=== PATIENT | female | born 1990 | race Caucasian/White ===

== ENCOUNTER 2021-04-30 08:02 | Outpatient (REF) | payer OTHER, SELFPAY ==
[2021-04-30 10:59] LABS: HCG Quantitative 4276 mIU/mL
== END 2021-04-30 08:03 | disposition home or self-care (01) ==
LOC: HO.LAB 08:02
PROVIDERS: Visit Provider Advanced Practice Midwife
DX: O26.899 Other specified pregnancy related conditions, unspecified trimester (principal); R30.0 Dysuria; Z32.01 Encounter for pregnancy test, result positive
CPT/HCPCS: 36415; 81003; 81025; 84702

== ENCOUNTER 2021-05-02 10:24 | Outpatient (REF) | payer OTHER, SELFPAY ==
[2021-05-02 11:51] LABS: HCG Quantitative 6305 mIU/mL
== END 2021-05-02 10:25 | disposition home or self-care (01) ==
LOC: HO.LAB 10:24
PROVIDERS: Visit Provider Advanced Practice Midwife
DX: O20.0 Threatened abortion (principal)
CPT/HCPCS: 36415; 84702

== ENCOUNTER 2021-05-03 18:28 | Emergency (ER) | payer OTHER, SELFPAY ==
--- NOTE | ~2021-05-03 | US_ITS ---
EXAMINATION: US OBSTETRICAL ULTRASOUND CLINICAL INFORMATION: Pain and bleeding. HCG 8169. COMPARISON: None. LMP: 03/16/2021. Gestational age by maternal dates is 6 weeks and 6 days. Estimated date of delivery by maternal dates is 12/21/2021. TECHNIQUE: Ultrasound of the maternal pelvis is performed using transabdominal and transvaginal transducers. Transvaginal imaging is performed due to inadequate visualization transabdominally. M-mode Doppler is also performed. FINDINGS: There is a single intrauterine gestational sac with visible yolk sac and pole. Gestational sac: 1.08 cm. CRL (crown rump length): 0.33 cm (6 weeks and 0 days +/- 4 days). EMILIE (estimated date of delivery): 12/17/2021 +/- 4 days. MATERNAL ADNEXA: The right maternal ovary measures 3.8 x 1.5 x 1.3 cm. The left maternal ovary measures 4.5 x 4.3 x 2.0 cm. There is a corpus luteal cyst measuring 2.1 cm. There is no significant maternal adnexal mass. No maternal pelvic ascites. US/US OB <= 14 weeks fetus IMPRESSION: Single intrauterine with a sonographic gestational age of 6 weeks and 0 days. Yolk sac and pole are identified. Unable to obtain a heart rate likely due to early gestation. Recommend continued follow-up per SENIOR STRATEGY ANALYST guidelines. No acute sonographic abnormalities.
[2021-05-03 18:55] VITALS: BP 132/78; PULSE 93; RESP 16; TEMP 36.2; O2SAT 100; BMI 38.7
[2021-05-03 20:56] LABS: MANUAL DIFF FLAG NO
[2021-05-03 20:58] LABS: Basophils Percent Auto 0.3 % (0-2); Eosinophils Absolute Auto 0.1 X10*3/uL (0.0-0.4); Eosinophils Percent Auto 0.6 % (0-4); Hematocrit 36.4 % (37.0-47.0); Hemoglobin 12.7 g/dl (12.0-16.0); Imm Gran Abs Auto 0.04 X10*3/uL (0.00-0.03); Imm Gran Pct Auto 0.4 % (0.0-0.4); Lymphocytes Absolute Auto 1.9 X10*3/uL (1.2-4.9); Lymphocytes Percent Auto 18.6 % (20-40); Mean Corpuscular HGB Conc 34.9 g/dl (31.0-35.0); Mean Corpuscular Hemoglobin 30.2 pg (27.0-33.0); Mean Corpuscular Volume 86.7 fL (80.0-98.0); Mean Platelet Volume 9.8 fL (9.4-12.3); Monocytes Absolute Auto 0.6 X10*3/uL (0.1-1.2); Monocytes Percent Auto 5.5 % (2-11); Neutrophils Absolute Auto 7.7 x10*3/uL (2.0-8.3); Neutrophils Percent Auto 74.6 % (45-73); Platelet Count 249 X10*3/uL (160-400); Red Cell Distribution Width 12.3 % (11.0-16.0); White Blood Count 10.4 X10*3/uL (4.8-10.8)
[2021-05-03 21:12] LABS: Alanine Aminotransferase 18 U/L (0-31); Albumin Level 4.4 g/dL (3.5-5.0); Alkaline Phosphatase 76 U/L (39-117); Anion Gap 11 (12-20); Aspartate Amino Transferase 14 U/L (5-31); Bilirubin Total 0.3 mg/dL (0.0-1.0); Blood Urea Nitrogen 7 mg/dL (9-16); Calcium 9.5 mg/dL (8.4-10.2); Carbon Dioxide 25 mmol/L (22-29); Chloride 106 mmol/L (96-108); Creatinine Clr Calc Pharmacy 147.3; Estimated Glomerular Filt Rate > 60; Glucose Random 113 mg/dL (60-115); Potassium 4.8 mmol/L (3.3-5.1); Sodium 137 mmol/L (135-145); Total Protein 7.4 g/dL (6.5-8.0)
[2021-05-03 21:18] LABS: HCG Quantitative 8169 mIU/mL
--- NOTE | 2021-05-03 21:41 | ED.PREGNANCY ---
HPI - General Chief complaint: Vaginal Bleeding Stated complaint: 6-7 wks preg/ bleeding Time Seen by Provider: 05/03/21 21:29 Source: patient Mode of arrival: ambulatory Limitations: no limitations History of Present Illness HPI Narrative: 22-year-old female w/ history of PCOS about 6-7 weeks here with bleeding after wiping and noted 1 hour prior to arrival with an associated cramping. This is patient's 1st . She has been seen by [facility]. She has not had ultrasound yet. She has no to the on-call weed thinner and was recommended she come into the emergency department for further evaluation Related Data Allergies Allergy/AdvReac Type Severity Reaction Status Date / Time flaxseeds Allergy Unknown Unknown Verified 04/30/21 08:10 Review of Systems Review of Systems: Yes all other systems are reviewed and are negative Constitutional: Constitutional: Reports no additional constitutional complaints, Denies body ache(s), Denies chills, Denies fever(s), Denies headache(s) and Denies weakness Eyes: Eyes: Reports no additional eye complaints and Denies change in vision ENT: Reports system reviewed and no additional complaints, except as documented, Denies dizziness, Denies headache(s), Denies nasal congestion, Denies nasal discharge and Denies neck pain Cardiovascular: Cardiovascular: Reports no additional cardiovascular complaints, Denies chest pain, Denies leg edema and Denies dyspnea Respiratory: Respiratory: Reports no additional respiratory complaints, Denies cough and Denies dyspnea Gastrointestinal: Gastrointestinal: Reports no additional gastrointestinal complaints, Denies abdominal pain, Denies diarrhea, Denies nausea and Denies vomiting Genitourinary: Genitourinary: Reports no additional female genitourinary complaints, Reports abnormal vaginal bleeding, Reports pelvic pain and Denies urinary incontinence Musculoskeletal: Musculoskeletal: Reports no additional musculoskeletal complaints, Denies back pain, Denies arthralgias, Denies joint swelling, Denies neck pain, Denies numbness and Denies tingling Integumentary/Breasts: Skin/Breast: Reports system reviewed and no additional complaints, except as docu and Denies rash Neurologic: Reports system reviewed and no additional complaints, except as documented, Denies Abnormal speech present, Denies dizziness, Denies headache(s), Denies numbness, Denies tingling and Denies weakness [facility] Past Medical History Attestation statement: The following information was validated with the patient. Source: old records reviewed and nursing notes reviewed Medical History ADHD Depression with anxiety Cindy-Danlos syndrome PCOS (polycystic ovarian syndrome) Surgical History History of repair of ACL Hx of adenoidectomy Family History Family History Paternal Grandfather Colon cancer Paternal Uncle Colon cancer Maternal Aunt History of breast cancer Social History Social History Alcohol intake: current Alcohol intake frequency: a few times a week Patient Tobacco Use Status: Former Tobacco user e-Cigarette/Vaping Use: Former Use Advance Directives: No Patient : Yes Sexual orientation: Straight/Heterosexual Gender identity: Female Physical Exam Vital Signs: Vital Signs: Last Vital Signs Temp 98.3 F 05/03/21 22:00 Pulse 86 05/03/21 22:00 Resp 16 05/03/21 22:00 BP 131/73 05/03/21 22:00 Pulse Ox 100 05/03/21 22:00 BMI result Body Mass Index 38.7 Const: General: cooperative, healthy appearing, comfortable and no acute distress Orientation/consciousness: patient oriented x3 Limitations: no limitations HENMT: Head: Yes normal to inspection Ears: hearing grossly normal bilaterally General nose exam: Normal external nose present Face and sinus: Yes normal facial exam Mouth: Normal oral and palatal mucosa present Throat: Yes posterior oropharynx normal Eyes: General: appearance normal, both eyes and all related structures Pupils: Equal, round and reactive pupils present Neck: Neck: Yes normal visual inspection Chest: Chest palpation & inspection: normal inspection of the chest Resp: Effort & Inspection: normal respiratory effort Auscultation: clear to auscultation bilaterally Cardio: Rate: regular rate Rhythm: regular rhythm Peripheral pulses: Peripheral pulses 2+ throughout GI: Inspection: Yes normal to inspection Palpation (GI): Soft to palpation and nontender Auscultation: normal bowel sounds Back/Spine/Pelvis: Thoracic/Lumbar Spine: thoracic and lumbar spine normal to inspection Skin: General skin exam: no rashes or lesions noted Neuro: General: patient oriented x3, no focal motor deficits and normal sensation to monofilament Cranial nerves: Yes Equal, round and reactive pupils present Cognition (Neuro): normal cognition Speech: No Abnormal speech present Gait exam (Neuro): Normal gait present Motor exam (neuro): 5/5 motor strength present throughout Extrem: General: Yes normal to inspection Course Course Course Narrative: 30-year-old female approximately 6-7 weeks here with reports of bleeding and cramping for 1 hour prior to arrival. Will check labs, Rh factor, ultrasound 2250- US shows Single intrauterine with a sonographic gestational age of 6 weeks and 0 days. Yolk sac and pole are identified. Unable to obtain a heart rate likely due to early gestation. Recommend continued follow-up per STARCH TREATING ASSISTANT guidelines. No acute sonographic abnormalities. Rh A positive. quant is trending. Patient reports scant bleeding only after wiping. No heavy bleeding or bleeding that requires any pad or tampon. Abdomen is soft and nontender with no rebound or guarding. We discussed that patient should follow-up with OB on Thursday. If she should develop any severe pain or worsening bleeding she should return to the emergency department this weekend. Reviewed worrisome signs and symptoms of when to return to the emergency department. Comfortable discharge home. MDM - OB/Uterine Contractions MDM Narrative Medical decision making narrative: Threatened miscarriage SAB Ectopic Medical Records Attestation: I reviewed the patient's medical records. Lab Data Attestation: I reviewed the patient's lab results. Result diagrams: 05/03/21 20:49 05/03/21 20:49 Labs: Lab Results 05/03/21 05/03/21 05/03/21 Range/Units 20:49 20:49 20:49 WBC 10.4 (4.8-10.8) X10*3/uL RBC 4.20 (4.20-5.50) X10*6/uL Hgb 12.7 (12.0-16.0) g/dl Hct 36.4 L (37.0-47.0) % MCV 86.7 (80.0-98.0) fL MCH 30.2 (27.0-33.0) pg MCHC 34.9 (31.0-35.0) g/dl RDW 12.3 (11.0-16.0) % Plt Count 249 (160-400) X10*3/uL MPV 9.8 (9.4-12.3) fL Immature Gran % (Auto) 0.4 (0.0-0.4) % Neut % (Auto) 74.6 H (45-73) % Lymph % (Auto) 18.6 L (20-40) % Hawkins % (Auto) 5.5 (2-11) % Eos % (Auto) 0.6 (0-4) % Baso % (Auto) 0.3 (0-2) % Lymph # (Auto) 1.9 (1.2-4.9) X10*3/uL Hawkins # (Auto) 0.6 (0.1-1.2) X10*3/uL Eos # (Auto) 0.1 (0.0-0.4) X10*3/uL Baso # (Auto) 0.0 (0.0-0.2) X10*3/uL Abs Immat Gran (auto) 0.04 H (0.00-0.03) X10*3/uL Absolute Neuts (auto) 7.7 (2.0-8.3) x10*3/uL Absolute Nucleated RBC 0.000 (0.0-0.012) X10*3/uL Nucleated RBC % (auto) 0.0 (0.0-0.2) /100WBC Sodium 137 (135-145) mmol/L Potassium 4.8 (3.3-5.1) mmol/L Chloride 106 (96-108) mmol/L Carbon Dioxide 25 (22-29) mmol/L Anion Gap 11 L (12-20) BUN 7 L (9-16) mg/dL Creatinine 0.71 (0.5-1.4) mg/dL Estim Creat Clear Calc 147.3 Estimated GFR > 60 Random Glucose 113 (60-115) mg/dL Calcium 9.5 (8.4-10.2) mg/dL Total Bilirubin 0.3 (0.0-1.0) mg/dL AST 14 (5-31) U/L ALT 18 (0-31) U/L Alkaline Phosphatase 76 (39-117) U/L Total Protein 7.4 (6.5-8.0) g/dL Albumin 4.4 (3.5-5.0) g/dL Beta HCG, Quant 8169 mIU/mL Urine Color Urine Appearance Urine pH (5.0-8.0) Ur Specific [place] (1.005-1.025) Urine Protein (NEG-TRACE) MG/DL Urine Glucose (UA) (NEG) MG/DL Urine Ketones (NEG) MG/DL Urine Blood (NEG) Urine Nitrite (NEG) Ur Leukocyte Esterase (NEG) Blood Type A Positive 05/03/21 Range/Units 23:07 WBC (4.8-10.8) X10*3/uL RBC (4.20-5.50) X10*6/uL Hgb (12.0-16.0) g/dl Hct (37.0-47.0) % MCV (80.0-98.0) fL MCH (27.0-33.0) pg MCHC (31.0-35.0) g/dl RDW (11.0-16.0) % Plt Count (160-400) X10*3/uL MPV (9.4-12.3) fL Immature Gran % (Auto) (0.0-0.4) % Neut % (Auto) (45-73) % Lymph % (Auto) (20-40) % Hawkins % (Auto) (2-11) % Eos % (Auto) (0-4) % Baso % (Auto) (0-2) % Lymph # (Auto) (1.2-4.9) X10*3/uL Hawkins # (Auto) (0.1-1.2) X10*3/uL Eos # (Auto) (0.0-0.4) X10*3/uL Baso # (Auto) (0.0-0.2) X10*3/uL Abs Immat Gran (auto) (0.00-0.03) X10*3/uL Absolute Neuts (auto) (2.0-8.3) x10*3/uL Absolute Nucleated RBC (0.0-0.012) X10*3/uL Nucleated RBC % (auto) (0.0-0.2) /100WBC Sodium (135-145) mmol/L Potassium (3.3-5.1) mmol/L Chloride (96-108) mmol/L Carbon Dioxide (22-29) mmol/L Anion Gap (12-20) BUN (9-16) mg/dL Creatinine (0.5-1.4) mg/dL Estim Creat Clear Calc Estimated GFR Random Glucose (60-115) mg/dL Calcium (8.4-10.2) mg/dL Total Bilirubin (0.0-1.0) mg/dL AST (5-31) U/L ALT (0-31) U/L Alkaline Phosphatase (39-117) U/L Total Protein (6.5-8.0) g/dL Albumin (3.5-5.0) g/dL Beta HCG, Quant mIU/mL Urine Color YELLOW Urine Appearance CLEAR Urine pH 6.0 (5.0-8.0) Ur Specific [place] 1.010 (1.005-1.025) Urine Protein NEG (NEG-TRACE) MG/DL Urine Glucose (UA) NEG (NEG) MG/DL Urine Ketones NEG (NEG) MG/DL Urine Blood NEG (NEG) Urine Nitrite NEG (NEG) Ur Leukocyte Esterase NEG (NEG) Blood Type Imaging Data US - abdomen: Attestation: I personally reviewed and interpreted this imaging study as follows: Radiologist's impression: FINDINGS: There is a single intrauterine gestational sac with visible yolk sac and pole. Gestational sac: 1.08 cm. CRL (crown rump length):? 0.33 cm (6 weeks and 0 days +/- 4 days). EMILIE (estimated date of delivery):? 12/17/2021 +/- 4 days. ? MATERNAL ADNEXA: ? ? The right maternal ovary measures 3.8 x 1.5 x 1.3 cm. The left maternal ovary measures 4.5 x 4.3 x 2.0 cm. There is a corpus luteal cyst measuring 2.1 cm. There is no significant maternal adnexal mass. No maternal pelvic ascites. US/US OB <= 14 weeks fetus IMPRESSION: Single intrauterine with a sonographic gestational age of 6 weeks and 0 days. Yolk sac and pole are identified. Unable to obtain a heart rate likely due to early gestation. ? Recommend continued follow-up per STARCH TREATING ASSISTANT guidelines. ? No acute sonographic abnormalities. Discharge Plan Discharge Clinical Impression: Threatened Patient Disposition: Home, Self-Care Instructions: Threatened Miscarriage (ED) Additional Instructions: See OB on Thursday Return for severe pain or bleeding (more then 1 pad per hour) Tylenol only for pain Increase fluids Referrals: Tracey Anton CNM [Primary Care Provider] - 3 days Stand Alone Forms: Work/School Release Discharge Date/Time: 05/03/21 23:31
[2021-05-03 22:00] VITALS: BP 131/73; PULSE 86; RESP 16; TEMP 36.8; O2SAT 100
[2021-05-03 23:11] LABS: Appearance Urine CLEAR; Color Urine YELLOW; Glucose Urine UA NEG (NEG); Leukocyte Esterase Urine NEG (NEG); Nitrite Urine NEG (NEG); Urine Blood NEG (NEG); Urine Ketones NEG (NEG); Urine Protein NEG (NEG-TRACE)
--- NOTE | 2021-05-03 23:30 | PC.NURSE ---
I did not witness the discharge of this patient, nor did I witness the patient leave the department.
== END 2021-05-03 23:31 | disposition home or self-care (01) ==
PROVIDERS: Emergency Provider Emergency Medicine; PCP Advanced Practice Midwife
DX: O20.0 Threatened abortion (principal); Z3A.01 Less than 8 weeks gestation of pregnancy
CPT/HCPCS: 36415; 76801; 80053; 81003; 84702; 85025; 86900; 86901; 99283; 99284

== ENCOUNTER 2021-05-08 09:42 | Outpatient (REF) | payer OTHER, SELFPAY ==
[2021-05-08 15:35] LABS: CT PCR NOT DETECTED (Not Detect.); NG PCR NOT DETECTED (Not Detect.)
== END 2021-05-08 09:43 | disposition home or self-care (01) ==
LOC: HO.LAB 09:42
PROVIDERS: PCP Advanced Practice Midwife; Visit Provider Obstetrics & Gynecology
DX: O20.0 Threatened abortion (principal); Z91.018 Allergy to other foods; O34.81 Maternal care for other abnormalities of pelvic organs, first trimester; N94.89 Other specified conditions associated with female genital organs and menstrual cycle; Z3A.01 Less than 8 weeks gestation of pregnancy; Z67.90 Unspecified blood type, Rh positive
CPT/HCPCS: 87491; 87591

== ENCOUNTER 2021-05-17 08:12 | Outpatient (REF) | payer OTHER, SELFPAY ==
--- NOTE | ~2021-05-17 | US_ITS ---
EXAMINATION: OBSTETRICAL ULTRASOUND, FIRST TRIMESTER HISTORY: 30-year-old at the 8.0 weeks of gestation Viability and dating LMP: Uncertain COMPARISON: 05/03/2021 TECHNIQUE: Real time transabdominal imaging with color and M-mode Doppler. A transvaginal ultrasound was performed using an endovaginal probe. FINDINGS: A single, live IUP CRL of 12.7 mm c/w 7.4wks is noted. Heart Rate: 165 beats per minute. Both maternal ovaries are seen and appear normal. GESTATIONAL AGE: 1. GA from LMP: 8.0 wks 2. GA from AUA: 7.4 wks ESTIMATED DATE OF DELIVERY: 1. EMILIE from LMP: 12/26/2021 2. EMILIE from AUA: 12/30/2021 US/US OB transvaginal IMPRESSION: 1. A single live IUP 2. Size equals dates 3. Normal ovaries Suggest the NT evaluation at approximately 12 weeks of gestation (not scheduled) Thank you for the referral. This note was generated with a voice recognition program. Please excuse any errors which may have been overlooked during my review of this note. Sometimes these errors may affect the content or meaning of a given sentence.
--- NOTE | ~2021-05-17 | US_ITS ---
EXAMINATION: OBSTETRICAL ULTRASOUND, FIRST TRIMESTER HISTORY: 30-year-old at the 8.0 weeks of gestation Viability and dating LMP: Uncertain COMPARISON: 05/03/2021 TECHNIQUE: Real time transabdominal imaging with color and M-mode Doppler. A transvaginal ultrasound was performed using an endovaginal probe. FINDINGS: A single, live IUP CRL of 12.7 mm c/w 7.4wks is noted. Heart Rate: 165 beats per minute. Both maternal ovaries are seen and appear normal. GESTATIONAL AGE: 1. GA from LMP: 8.0 wks 2. GA from AUA: 7.4 wks ESTIMATED DATE OF DELIVERY: 1. EMILIE from LMP: 12/26/2021 2. EMILIE from AUA: 12/30/2021 US/US OB <= 14 weeks fetus IMPRESSION: 1. A single live IUP 2. Size equals dates 3. Normal ovaries Suggest the NT evaluation at approximately 12 weeks of gestation (not scheduled) Thank you for the referral. This note was generated with a voice recognition program. Please excuse any errors which may have been overlooked during my review of this note. Sometimes these errors may affect the content or meaning of a given sentence.
== END 2021-05-17 08:13 | disposition home or self-care (01) ==
LOC: HO.US 08:12
PROVIDERS: Visit Provider Advanced Practice Midwife
DX: O36.80X0 Pregnancy with inconclusive fetal viability, not applicable or unspecified (principal)
CPT/HCPCS: 76801; 76817

== ENCOUNTER 2021-05-21 11:53 | Outpatient (REF) | payer OTHER, SELFPAY ==
--- NOTE | ~2021-05-21 | US_ITS ---
EXAMINATION: US OBSTETRICAL ULTRASOUND CLINICAL INFORMATION: Threatened . COMPARISON: Previous exam May 03 and 05/17/2021 LMP: 03/16/2021. Gestational age by maternal dates is 8 weeks 6 days. Estimated date of delivery by maternal dates is 12/21/2021. TECHNIQUE: Transabdominal first trimester OB ultrasound. FINDINGS: There is a single intrauterine gestational sac with visible yolk sac, embryo/fetus, and cardiac activity. There is no significant subchorionic hemorrhage or hematoma. HR: 181 beats per minute. CRL (crown-rump length): 1.6 cm (8 weeks 1 day +/- 4 days). EMILIE (estimated date of delivery): 12/30/2021 +/- 4 days. This agrees with date from most recent exam 05/17/2021. MATERNAL ADNEXA: The right maternal ovary measures 2.6 x 1.1 x 2.5 cm. The left maternal ovary measures 3.1 x 2.2 x 2.5 cm. There is no significant maternal adnexal mass. No maternal pelvic ascites. US/US OB <= 14 weeks fetus IMPRESSION: Single viable intrauterine .
== END 2021-05-21 11:54 | disposition home or self-care (01) ==
LOC: HO.US 11:53
PROVIDERS: Visit Provider Obstetrics & Gynecology
DX: O20.0 Threatened abortion (principal)
CPT/HCPCS: 76801

== ENCOUNTER → 2021-05-23 14:57 | Outpatient (BNVA) | payer OTHER, SELFPAY | PROVIDERS: Visit Provider Advanced Practice Midwife ==

== ENCOUNTER → 2022-03-26 13:10 | Outpatient (BNVA) | payer OTHER, SELFPAY | PROVIDERS: Visit Provider Physician Assistant | DX: Z13.89 Encounter for screening for other disorder (principal) | CPT/HCPCS: 99213 ==

== ENCOUNTER → 2022-04-01 13:38 | Outpatient (BNVA) | payer OTHER, SELFPAY | PROVIDERS: Visit Provider Physician Assistant Medical | DX: Z13.89 Encounter for screening for other disorder (principal) | CPT/HCPCS: 73600; 73620; 99213 ==

== ENCOUNTER → 2022-04-14 14:40 | Outpatient (BNVA) | payer OTHER, SELFPAY | PROVIDERS: Visit Provider Physician Assistant Medical | DX: Z13.89 Encounter for screening for other disorder (principal) | CPT/HCPCS: 99213 ==

== ENCOUNTER 2022-04-24 08:00 | Outpatient (RCR) | payer OTHER, SELFPAY ==
--- NOTE | 2022-04-02 16:16 | MHC.PT.EP ---
[facility] [place] Office [place] Office [place] [facility] [address] Jennifer Chang [address] [phone] F: [phone] F: [phone] F: [phone] F: [phone] Physical Therapy Plan of Care Date of Evaluation: Date of Surgery: N/A Diagnosis: L ankle sprain (RC) Assessment: pt is a 31 y/o female presenting to physical therapy w/ referring diagnosis of left ankle sprain. Impairments include pain, decreased range of motion, decreased strength, impaired functional mobility, impaired postural awareness, and altered ambulation mechanics. pt is a good candidate for skilled PT due to age, potential remediation of impairments, typical disease/condition progression and prognosis, comorbidities, and motivation. pt would benefit from skilled PT intervention to provide a tailored strengthening and stretching exercise program, functional training, gait training, postural re-training, neuromuscular re-education, modalities as needed for pain, equipment safety demonstration. Frequency and Duration: The patient will be seen 2x/wk for 4 wks Short Term Goals: pt will be I w/ HEP to promote self-management of condition. pt will improve L ankle DF by 10 degrees to normalize gait pattern on even ground. Intermediate Goals: pt will report a statistically significant improvement in self-reported outcome measure, LEFI, pt will report <2/10 ankle pain w/ ambulation for >30 min to promote return to grocery shopping. Treatment Plan: Modalities to reduce pain, spasms and effusion. Manual therapy to restore motion and function. Therapeutic exercise to improve strength and flexibility. Neuromuscular re-education for posture and balance. Therapeutic activities to return to functional activities of daily living. Electronically signed by: Jessica Ling PT, DPT Please sign and return to therapist. Thank you for your referral.
--- NOTE | 2022-05-20 14:19 | MHC.PT.DC ---
[facility] [place] Office [place] Office [place] Office [address] Jennifer Chang [address] [phone] F: [phone] F: [phone] F: [phone] F: [phone] Physical Therapy Discharge Report Diagnosis: L ankle sprain (RC) Date of Surgery: N/A Date of Evaluation: 04/02/22 Date of Discharge: 05/20/22 Treatments to Date: 5 Cancellations to Date: 2 No Shows to Date: 0 Discharge Status: Improved Function Independent with HEP Discharge Summary: pt continues to tolerate progressive standing and balance w/ minimal pain. Today was her last scheduled appt. She is following up w/ the work connection doctor on Thursday. She will meet w/ them and determine if the plan is to continue w/ PT at this time. pt feels she is able to do all the things she needs to do. Because she is she is technically not supposed to be going on [employer] but that is the only work-related task she is not doing. I will keep her chart open for 3 weeks. If I do not hear from her in that time I will D/C the chart. pt in agreement w/ plan. Electronically signed by: Jessica Ling PT, DPT Please sign and return to therapist. Thank you for your referral.
== END 2022-05-20 14:19 | disposition home or self-care (01) ==
LOC: HO.PT 08:00
PROVIDERS: Visit Provider Physician Assistant Medical
DX: S93.402D Sprain of unspecified ligament of left ankle, subsequent encounter (principal)
CPT/HCPCS: 97110; 97112; 97162

== ENCOUNTER → 2022-04-30 14:56 | Outpatient (BNVA) | payer OTHER, SELFPAY | PROVIDERS: Visit Provider Physician Assistant Medical | DX: Z13.89 Encounter for screening for other disorder (principal) | CPT/HCPCS: 99213 ==

== ENCOUNTER 2022-05-30 04:00 | Emergency (ER) | payer OTHER, SELFPAY ==
[2022-05-30 04:08] VITALS: BP 134/71; PULSE 105; RESP 16; TEMP 37.1; O2SAT 99; BMI 39.1
[2022-05-30 04:19] LABS: MANUAL DIFF FLAG NO
--- NOTE | 2022-05-30 04:27 | PC.NURSE ---
heart rate obtained by using Doppler 159 beats/min.
[2022-05-30 04:31] LABS: Basophils Percent Auto 0.2 % (0-2); Eosinophils Absolute Auto 0.1 X10*3/uL (0.0-0.4); Eosinophils Percent Auto 0.6 % (0-4); Hematocrit 32.5 % (37.0-47.0); Hemoglobin 11.5 g/dl (12.0-16.0); Imm Gran Abs Auto 0.22 X10*3/uL (0.00-0.03); Imm Gran Pct Auto 1.4 % (0.0-0.4); Lymphocytes Absolute Auto 3.2 X10*3/uL (1.2-4.9); Lymphocytes Percent Auto 19.9 % (20-40); Mean Corpuscular HGB Conc 35.4 g/dl (31.0-35.0); Mean Corpuscular Hemoglobin 31.1 pg (27.0-33.0); Mean Corpuscular Volume 87.8 fL (80.0-98.0); Mean Platelet Volume 10.1 fL (9.4-12.3); Monocytes Absolute Auto 0.9 X10*3/uL (0.1-1.2); Monocytes Percent Auto 5.4 % (2-11); Neutrophils Absolute Auto 11.6 x10*3/uL (2.0-8.3); Neutrophils Percent Auto 72.5 % (45-73); Platelet Count 195 X10*3/uL (160-400); Red Cell Distribution Width 13.2 % (11.0-16.0)
[2022-05-30 04:33] LABS: Alanine Aminotransferase 14 U/L (0-31); Albumin Level 3.5 g/dL (3.5-5.0); Alkaline Phosphatase 104 U/L (39-117); Anion Gap 13 (12-20); Aspartate Amino Transferase 12 U/L (5-31); Bilirubin Total 0.4 mg/dL (0.0-1.0); Blood Urea Nitrogen 7 mg/dL (9-16); Carbon Dioxide 22 mmol/L (22-29); Chloride 105 mmol/L (96-108); Creatinine Clr Calc Pharmacy 173.9; Estimated Glomerular Filt Rate > 60; Glucose Random 85 mg/dL (60-115); Potassium 3.9 mmol/L (3.3-5.1); Sodium 136 mmol/L (135-145); Total Protein 6.3 g/dL (6.5-8.0)
--- NOTE | 2022-05-30 05:37 | MHC.EDTECH ---
@[phone] DR SANTOS REQUEST CALL OUT TO [facility] [place] LINE FOR [facility] WOMEN TX FOR THIS PT RAFA ANSWER, TAKES PT INFO THEN STATES SHE WILL CALL DR SANTOS BACK
--- NOTE | 2022-05-30 05:40 | MHC.EDTECH ---
@[phone] CALL RECEIVE FROM SHARMILA OF THE [facility] PT [place] LINE ASKING TO SPEAK WITH DR DANIELLE SANTOS TAKES OVER CALL RIGHT AWAY
--- NOTE | 2022-05-30 05:43 | ED.PREGNANCY ---
HPI - General Chief complaint: Vaginal Bleeding Stated complaint: dizziness Time Seen by Provider: 05/30/22 05:27 Source: patient Mode of arrival: ambulatory Limitations: no limitations History of Present Illness HPI Narrative: 31-year-old female who presents emergency department for evaluation of vaginal bleeding. The patient is a , 28 weeks and 4 days , with EDC 08/17/2022. 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 She states she was doing light duty. She states that she felt a vaginal discharge in noted that it was bright red blood. This occurred around 04:00 hours. She then came to the emergency department and a OB pad was placed on the patient. When I evaluated the patient at 0 530 hours the patient approximately quarter-size spot of dark blood on the pad. Pain states she had 10 minutes of cramping but this resolved. She states that she can feel movement. The patient states that on 05/19/2022 she was admitted to [facility] [place] for vaginal bleeding was told that she had a small placental bleed. She states she stayed overnight and then went home. The patient's blood type is A positive. Related Data Home Medications Medication Instructions Recorded Confirmed acetaminophen 325 mg capsule 650 mg PO Q6H PRN 05/23/21 (Tylenol) vit 168-iron 27 mg-folic cap PO 05/23/21 acid 800 mcg-omega3 235 mg capsule (One-A-Day -1) Previous Rx's Medication Instructions Recorded doxylamine succinate 25 mg tablet 25 mg PO BEDTIME PRN sleep #30 tabs 05/15/21 (Unisom (doxylamine)) pyridoxine (vitamin B6) 25 mg 25 mg PO TID PRN nausea and 05/15/21 tablet (Vitamin B-6) vomiting #90 tabs Allergies Allergy/AdvReac Type Severity Reaction Status Date / Time flaxseed Allergy Unknown Unknown Verified 05/08/22 10:33 Review of Systems Review of Systems: Yes all other systems are reviewed and are negative PMFSH Past Medical History Medical History ADHD Asthma Depression with anxiety Cindy-Danlos syndrome PCOS (polycystic ovarian syndrome) Surgical History History of repair of ACL Hx of adenoidectomy Family History Family History Paternal Grandfather Colon cancer Paternal Uncle Colon cancer Maternal Aunt History of breast cancer Social History Social History Alcohol intake: current Alcohol intake frequency: a few times a week Patient Tobacco Use Status: Former Tobacco user e-Cigarette/Vaping Use: Former Use Advance Directives: No Advance Directives Information Provided: Yes Sexual orientation: Straight/Heterosexual Gender identity: Female Physical Exam Vital Signs: Vital Signs: Last Vital Signs Temp 98.7 F 05/30/22 04:08 Pulse 105 H 05/30/22 04:08 Resp 16 05/30/22 04:08 BP 134/71 05/30/22 04:08 Pulse Ox 99 05/30/22 04:08 O2 Del Method 05/30/22 04:08 BMI result Body Mass Index 39.1 Const: Other: Awake, alert, female patient, very pleasant and cooperative, no distress HEENT: Head: Yes normal to inspection, Yes normocephalic and Yes atraumatic Ears: external ears normal General nose exam: Normal external nose present Face and sinus: Yes normal facial exam Mouth: Normal oral and palatal mucosa present Throat: Yes posterior oropharynx normal Eyes: General: appearance normal, both eyes and all related structures Neck: Neck: Yes normal visual inspection, Yes no lymphadenopathy, Yes trachea midline and Yes supple Chest: Chest palpation & inspection: normal inspection of the chest and normal palpation of entire chest wall Resp: Effort & Inspection: normal respiratory effort and able to speak in complete sentences Auscultation: clear to auscultation bilaterally Cardio: Rate: regular rate Rhythm: regular rhythm Heart sounds: S1 normal heart sound present, S2 normal heart sound present and no murmurs GI: Other: Gravid abdomen, mild diffuse tenderness, moderate suprapubic tenderness and right lower quadrant tenderness, normal bowel sound, no rebound : General: Yes no CVA tenderness Back/Spine/Pelvis: Back: no CVA tenderness Neuro: Cognition (Neuro): normal cognition Extrem: General: Yes normal to inspection Psych: Appearance: grossly normal Speech and movement: Normal speech and movement present Affect: normal affect Attitude: cooperative Medical Decision Making Medical Decision Making MDM Narrative: 31-year-old female G2 P 0, 28 weeks 5 days prior who presents emergency department for evaluation of vaginal bleeding which started at 04:00 hours. She had approximately 10 minutes of abdominal cramping. She states she does feel movement. Patient's heart tones were 157. The patient had a OB pad on for approximately 1-1/2 hours and only had approximately a quarter-size blood spot. Patient did have diffuse mild abdominal tenderness with increased tenderness with palpation over the right lower quadrant and suprapubic area. 0550: Laboratory interpretation: WBC elevated 16,000, anemia with an H&H of 11 and 32.5. Platelet count of a 651604. Normal LFTs. Blood type A positive from previous visit. COVID-19 and influenza pending. I did discuss the patient's presentation with OBGYN Dr. Ramos at [facility] and she did accept the patient as an ED to [facility]. Patient will be transferred by ALS ambulance. Differential Diagnosis Differential diagnosis includes was not limited to placental bleeding, miscarriage, pre term labor Lab Data 05/30/22 04:15 05/30/22 04:15 Labs: Lab Results 05/30/22 05/30/22 Range/Units 04:15 04:15 WBC 16.0 H (4.8-10.8) X10*3/uL RBC 3.70 L (4.20-5.50) X10*6/uL Hgb 11.5 L (12.0-16.0) g/dl Hct 32.5 L (37.0-47.0) % MCV 87.8 (80.0-98.0) fL MCH 31.1 (27.0-33.0) pg MCHC 35.4 H (31.0-35.0) g/dl RDW 13.2 (11.0-16.0) % Plt Count 195 (160-400) X10*3/uL MPV 10.1 (9.4-12.3) fL Immature Gran % (Auto) 1.4 H (0.0-0.4) % Neut % (Auto) 72.5 (45-73) % Lymph % (Auto) 19.9 L (20-40) % [place] % (Auto) 5.4 (2-11) % Eos % (Auto) 0.6 (0-4) % Baso % (Auto) 0.2 (0-2) % Lymph # (Auto) 3.2 (1.2-4.9) X10*3/uL [place] # (Auto) 0.9 (0.1-1.2) X10*3/uL Eos # (Auto) 0.1 (0.0-0.4) X10*3/uL Baso # (Auto) 0.0 (0.0-0.2) X10*3/uL Abs Immat Gran (auto) 0.22 H (0.00-0.03) X10*3/uL Absolute Neuts (auto) 11.6 H (2.0-8.3) x10*3/uL Absolute Nucleated RBC 0.000 (0.0-0.012) X10*3/uL Nucleated RBC % (auto) 0.0 (0.0-0.2) /100WBC Sodium 136 (135-145) mmol/L Potassium 3.9 (3.3-5.1) mmol/L Chloride 105 (96-108) mmol/L Carbon Dioxide 22 (22-29) mmol/L Anion Gap 13 (12-20) BUN 7 L (9-16) mg/dL Creatinine 0.62 (0.5-1.4) mg/dL Estim Creat Clear Calc 173.9 Estimated GFR > 60 Random Glucose 85 (60-115) mg/dL Calcium 9.0 (8.4-10.2) mg/dL Total Bilirubin 0.4 (0.0-1.0) mg/dL AST 12 (5-31) U/L ALT 14 (0-31) U/L Alkaline Phosphatase 104 (39-117) U/L Total Protein 6.3 L (6.5-8.0) g/dL Albumin 3.5 (3.5-5.0) g/dL Discharge Plan Discharge Clinical Impression: Hemorrhage affecting Patient Disposition: Xfer Acute Care Hospital Transfer Details: [facility] Prescriptions: No Action pyridoxine (vitamin B6) [Vitamin B-6] 25 mg tablet 25 mg PO TID PRN (Reason: nausea and vomiting) Qty: 90 3RF Rx Instructions: may take every 6-8 hours for nausea Unisom (doxylamine) 25 mg tablet 25 mg PO BEDTIME PRN (Reason: sleep) Qty: 30 3RF acetaminophen [Tylenol] 325 mg capsule 650 mg PO Q6H PRN One-A-Day -1 27 mg iron- 800 mcg-235 mg capsule PO
[2022-05-30 06:06] LABS: COVID-19 Test Negative (Negative); IDNOW Serial# 08D9AD1C; IDNOW Serial# BCCEAD1C; Influenza A Negative (Negative); Influenza B2 Negative (Negative)
--- NOTE | 2022-05-30 06:06 | MHC.EDTECH ---
@1400 CALL PLACED TO [facility] FOR ALS TRANSFER @ REQUEST OF DR SANTOS D/T VAGINAL BLEEDING @ 28 WEEKS W/CONCERN FOR POSSIBLE DELIVERY JAVIER AQUINO ANSWERS, TAKES PT INFO AND STATES SHE JARAMILLO END THEM RIGHT UP @1069 [facility] ENTERS THE ER FOR THIS PT
[2022-05-30 06:08] LABS: Appearance Urine Clear; Color Urine Red; Glucose Urine UA Negative (Negative); Leukocyte Esterase Urine Trace (Negative); Nitrite Urine Negative (Negative); UMIC TRIGGER UACC YES; Urine Blood Large (3+) (Negative); Urine Ketones Trace mg/dL (Negative); Urine Protein Trace mg/dL (Neg-Trace)
[2022-05-30 06:12] LABS: Bacteria Urine None Seen (None Seen); Hyaline Casts Urine 0-2 /LPF (0-2); RBC Urine >20 /HPF (0-2); Squamous Epithelial Cell Urine 0-2 /HPF (0-2); WBC Urine 0-5 /HPF (0-5)
[2022-05-30 06:24] LABS: HCG Quantitative 22918 mIU/mL
--- NOTE | 2022-05-30 06:29 | PC.NURSE ---
Nurse to nurse report called to Xandermily Iman, spoke to ANUP Urbina.
== END 2022-05-30 06:32 | disposition short-term general hospital (02) ==
PROVIDERS: Emergency Provider Emergency Medicine Emergency Medical Services
DX: R42 Dizziness and giddiness (principal); N93.9 Abnormal uterine and vaginal bleeding, unspecified; Z87.891 Personal history of nicotine dependence; Z20.822 Contact with and (suspected) exposure to COVID-19; Z20.828 Contact with and (suspected) exposure to other viral communicable diseases; Z79.899 Other long term (current) drug therapy
CPT/HCPCS: 36415; 80053; 81001; 84702; 85025; 87502; 87635; 99283; 99285

== ENCOUNTER → 2022-08-01 09:45 | Outpatient (REF) | payer OTHER, SELFPAY ==
--- NOTE | 2022-08-01 09:59 | CA_ITS ---
Transthoracic Echocardiogram Patient (Last, First, Middle): Jessica Coelho R Gender: Female Date of : 1990 Age: 32 Procedure Date: 08/01/2022 Procedure Type: Transthoracic Echocardiogram Location: OP Height: 170.18 cm Weight: 117.94 kg BSA: 2.26 m2 Heart Rate: bpm BP: 110 / 70 mmHg Injection Moulding Machine Operator: TO Referring MD: ALICIA VALDEZ Symptoms: RUDY-DANLOS SYNDROME,UNSPECIFIED Study Quality: Fair/No Contrast due to Conclusions: - Normal left ventricular size and systolic function. There is mildly increased left ventricular wall thickness. The visually estimated ejection fraction is between 55-60%. There is no evidence of regional wall motion abnormalities. Diastolic function is normal for age. - Normal right ventricular cavity size and systolic function. Findings Left Ventricle Normal left ventricular size and systolic function. There is mildly increased left ventricular wall thickness. The visually estimated ejection fraction is between 55-60%. There is no evidence of regional wall motion abnormalities. Diastolic function is normal for age. Right Ventricle Normal right ventricular cavity size and systolic function. Atria Both atria are normal in size. Aortic Valve Normal aortic valve structure and function. There is no aortic valve stenosis. There is no aortic valve regurgitation. Mitral Valve Normal mitral valve structure and function. There is no mitral valve regurgitation. There is no mitral valve stenosis. Pulmonic Valve The pulmonic valve is likely normal. Tricuspid Valve Normal tricuspid valve structure and function. There is no tricuspid valve regurgitation. Tricuspid regurgitation envelope is inadequate for calculation of right ventricular systolic pressure. Normal right atrial pressure. Great Vessels All visible segments of the aorta are normal in size. The visualized portions of the pulmonary artery and branches are normal. Venous The inferior vena cava is normal in size and collapses greater than 50% with inspiration. Pericardium/Pleural There is no evidence of pericardial effusion. Prior Study Comparison No prior study available for comparison. Measurements 2D Linear Measurements IVSd: 1.04 0.6-0.9/0.6-1.0 cm LVIDd: 5.54 3.9-5.3/4.2-5.9 cm LVIDd Index: 2.45 2.4-3.2/2.2-3.1 cm/m2 LVIDs: 3.34 2.0-3.6 cm LVPWd: 0.90 0.7-1.1 cm LA Diam: 3.50 2.7-3.8/3.0-4.0 cm LAIDs Index: 1.55 1.5-2.3 cm/m2 LV Mass: 258.94 67-162/88-224 g LV Mass Index: 114.58 43-95/49-115 g/m2 LVOT Diam: 2.10 3.0+(-)1.3 cm 2D Systolic Function EF 4C: 61.50 >55% Mitral Valve MV Pk E: 0.71 MV PK A: 0.57 MV Decel Time: 219.00 E/A: 1.20 E'Lateral: 10.10 E'Medial: 6.96 E/E' Med: 10.20 E/E' Lat: 7.00 PHT: 64.00 MVA PHT: 3.44 Decel Robeson: 3.22 Aortic Valve AoV Pk Natan: 1.65 AoV Mn Natan: 1.12 AoV VTI: 0.31 AoV Pk Grad: 11.00 Aov Mn Grad: 6.00 ONEIL Cont.VTI: 2.00 LVOT LVOT Pk Natan: 0.90 LVOT Mn Natan: 0.64 LVOT VTI: 0.18 LVOT Pk Grad: 3.00 LVOT Mn Grad: 2.00 LVOT Diam: 2.10 LVOT Area: 3.46 Diastolic Function MV Pk E: 0.71 MV Pk A: 0.57 E/A: 1.20 E'Medial: 6.96 E/E' Med: 10.20 E' Laterial: 10.10 E/E' Lat: 7.00 Right Ventricle TAPSE (mm): 22.60 TVS' Natan: 10.70 Great Vessels Aorta Sinus of Valsalva: 2.83 2.0-3.5 cm Ao Asc: 2.90 2.1-3.4 cm Updated in Other Vendor System with Status of Final Aidan Ashby MD electronically signed on 08/02/2022 9:06:42 PM with status of Final
== END ==
LOC: HO.CARD 09:45
PROVIDERS: Visit Provider Student in an Organized Health Care Education/Training Program
DX: Q79.60 Ehlers-Danlos syndrome, unspecified (principal)
CPT/HCPCS: 93306

== ENCOUNTER 2024-12-07 20:48 | Emergency (ER) | payer OTHER, SELFPAY ==
--- NOTE | ~2024-12-07 | CT_ITS ---
CLINICAL HISTORY: fall CT head without contrast Comparison: None provided Findings: BRAIN: No acute infarct, hemorrhage, or mass effect. No abnormal atrophy. CSF SPACES: No hydrocephalus or effacement of basal cisterns. SKULL: No calvarial fracture. SINUSES: No significant mucosal thickening or effusion on limited views. ORBITS: Limited views are unremarkable. OTHER: Negative. IMPRESSION: 1. No acute intracranial findings. This document has been electronically signed by: Brianna Cerrato MD on 12/07/2024 22:08:56
--- NOTE | ~2024-12-07 | CT_ITS ---
CLINICAL HISTORY: fall CT cervical spine without contrast Comparison: None provided Findings: Mild motion artifact. Straightening of the normal cervical lordosis. No significant degenerative change. No acute fractures or dislocations. No acute findings on limited view of the intracranial contents. No cervical fluid collections or masses. Lung apices are clear. IMPRESSION: No acute traumatic abnormality in the cervical spine. This document has been electronically signed by: Brianna Cerrato MD on 12/07/2024 22:10:53
[2024-12-07 21:02] VITALS: BP 143/67; PULSE 85; RESP 18; TEMP 36.9; O2SAT 98; BMI 42.3
--- OUTSIDE RECORDS SUMMARY | 2024-12-07 21:53 | XMS_ITS ---
Author Name [facility] Organization Unknown Encounters Encounter Type Encounter Reason Primary Diagnosis Location Date Ambulatory [facility] 12/25/2023 Care Team Organization Name Specialty Phone Email Start Date End Da te [facility] 2024 Carlita Obrien APRN PLLC; [facility] 11/02/2023
--- OUTSIDE RECORDS SUMMARY | 2024-12-07 21:53 | XMS_ITS | Clinical Summary ---
Author Organization [facility] ity Address [address] [place] [address] Care Team Providers Care Professor Of Voice Name Role Phone Carlita Obrien NP Primary Care Provider [phone] Surgical History Surgery Date Site/Laterality Comments ADENOIDECTOMY PROCEDURE:ADENOIDECTOMY KNEE ARTHROSCOPY W/ ACL RECONSTRUCTION PROCEDURE:KNEE ARTHROSCOPY W/ ACL RECONSTRUCTION Medical History Medical History Date Comments Cindy-Danlos syndrome DX:Cindy -Danlos syndrome PCOS (polycystic ovarian syndrome) DX:PCOS (polycystic ovarian syndrome) Covid-19 DX:COVID-19 Attention deficit hyperactiv ity disorder (ADHD), combined type 04/03/2021 DX:Attention deficit hy peractivity disorder (ADHD), combined type Family History Medical History Relation Name Comments No Known Problems Brother No Known Problems Father No Known Problems Father's Brother 1 Colon cancer Father's Brother 2 No Known Problems Father's Brother 3 Arthritis Father's Sister 1 No Known Problems Father's Sister 2 Arthritis Maternal Grandmother Asthma Maternal Grandmother Hypotension Maternal Grandmother Diabetes Mother Hypertension Mother Hypothyroidism Mother Seizures Mother Breast cancer Mother's Sister Migraines Mother's Sister Colon cancer Paternal Grandfather Heart disease Paternal Grandfather No Known Problems Paternal Grandmother Relation Name Status Comments Brother Alive Father Alive Father's Brother 1 Alive Father's Brother 2 Alive Father's Brother 3 Alive Father's Sister 1 Alive Father's Sister 2 Alive Maternal Grandfather Maternal Grandmother Alive Mother Alive Mother's Brother Alive Mother's Sister Alive Paternal Grandfather Paternal Grandmother Alive Social History Tobacco Use Types Packs/Day Years Used Date Smoking Tobacco: Former Cigarettes 0.3 0.2 1 04/23/2014 - 05/22/2015 Smokeless Tobacco: Never Alcohol Use Standard Drinks/Week Comments Yes 6 (1 standard drink = 0.6 oz pur e alcohol) Comments Unknown Sex and Gender Information Value Date Recorded Sex Assigned at Not on file Legal Sex Female 12:41 AM EST Gender Identity Not on file Sexual Orientation Not on file Obstetrics History Plan of Treatment Health Maintenance Due Date Last Done Comments DTaP,Tdap,and Td Vaccines (1 - Tdap) 08/01/2011 Hepatitis B Vaccines (1 of 3 - 19+ 3-dose series) 08/01/2011 Cervical Cancer Screening: P ap Smear 2013 HIV Screening 02/16/2022 Hepatitis C Screening 02/16/2022 Social Influencers of Health Screening 02/16/2022 Depression Screening 03/16/2024 COVID-19 Vaccine (4 - 2024-2 6 season) 2024 03/14/2021, 06/01/2020, 05/11/2020 Influenza Vaccine (#1) 2024 Cholesterol Screening (Lipid Panel) 03/29/2026 03/29/2021 HIB Vaccines Aged Out No longer eligi ble based on patient's age to complete this topic HPV Vaccines Aged Out No longer eligi ble based on patient's age to complete this topic Hepatitis A Vaccines Aged Out No long er eligible based on patient's age to complete this topic IPV Vaccines Aged Out No longer eligi ble based on patient's age to complete this topic MMR Vaccines Aged Out No longer eligi ble based on patient's age to complete this topic Meningococcal ACWY Vaccine Aged Out N o longer eligible based on patient's age to complete this topic Meningococcal B Vaccine Aged Out No l onger eligible based on patient's age to complete this topic Pneumococcal Vaccine: Pediatrics (0 to 5 Years) and At-Risk Patients (6 to 49 Years) Aged Out No longer eligible b ased on patient's age to complete this topic RSV Immunization Patients Under 20 months Aged Out No longer eligible b ased on patient's age to complete this topic Varicella Vaccines Aged Out No longer eligible based on patient's age to complete this topic Care Teams Professor Of Voice Relationship Specialty Start Date End Date Carlita Obrien NP [address] [place] [address] PCP - General Pediatrics 02/20/21
--- OUTSIDE RECORDS SUMMARY | 2024-12-07 21:53 | XMS_ITS | Clinical Summary ---
Author Organization [facility] Address [address] [place] [address] Care Team Providers Care Band Instrument Repairer Name Role Phone Carlita Obrien APRN Primary Care Provider [phone] Allergies No known active allergies Medications Medication Sig Dispensed Refills Start Date End Date Status ibuprofen 800 MG tablet ibuprofen 800 mg tablet Take 1 tablet 3 times a day by oral route. 0 Active desogestrel-ethinyl estradiol (Kariva) 0.15-0.02/0.01 MG (03/08) per tablet TAKE 1 TABLET BY MOUTH EVERY DAY 84 tablet 2 04/03/2021 Active Active Problems Problem Noted Date Diagnosed Date Attention deficit hyperactiv ity disorder (ADHD), combined type 04/03/2021 Cindy-Danlos syndrome 03/06/2021 Polycystic ovaries 01/14/2017 Immunizations Name Administration Dates Next Due Covid-19 (Moderna 12+) 100mcg/0.5mL dosage 03/14 Covid-19 (Pfizer) Dilution Required 06/01/2020,0 05/11/2020 Family History Medical History Relation Name Comments No Sig Med Hx Brother No Sig Med Hx Father Breast cancer Maternal Aunt Migraines Maternal Aunt Arthritis Maternal Grandmother Asthma Maternal Grandmother Hypotension Maternal Grandmother Diabetes Mother Hypertension Mother Hypothyroidism Mother Seizures Mother Arthritis Paternal Aunt 1 No Sig Med Hx Paternal Aunt 2 Colon cancer Paternal Grandfather Heart disease Paternal Grandfather No Sig Med Hx Paternal Grandmother No Sig Med Hx Paternal Uncle 1 Colon cancer Paternal Uncle 2 No Sig Med Hx Paternal Uncle 3 Relation Name Status Comments Brother Alive Father Alive Maternal Aunt Alive Maternal Grandfather Maternal Grandmother Alive Maternal Uncle Alive Mother Alive Paternal Aunt 1 Alive Paternal Aunt 2 Alive Paternal Grandfather Paternal Grandmother Alive Paternal Uncle 1 Alive Paternal Uncle 2 Alive Paternal Uncle 3 Alive Social History Tobacco Use Types Packs/Day Years Used Date Smoking Tobacco: Former Cigarettes 0.3 1 04/23/2014 - 05/22/2015 Smokeless Tobacco: Never Alcohol Use Standard Drinks/Week Comments Yes 6 (1 standard drink = 0.6 oz pur e alcohol) socially Sex and Gender Information Value Date Recorded Sex Assigned at Not on file Gender Identity Not on file Sexual Orientation Not on file Job Start Date Occupation Industry Not on file Not on file Not on file Last Filed Vital Signs Vital Sign Reading Time Taken Comments Blood Pressure 118/86 04/03/2021 10:50 AM EST Pulse 87 04/03/2021 10:50 AM EST Temperature 37 C (98.6 F) 04/03/2021 10:50 AM EST Respiratory Rate 16 04/03/2021 10:5 0 AM EST Oxygen Saturation 98% 04/03/2021 10: 50 AM EST Inhaled Oxygen Concentration - - Weight 113.5 kg (250 lb 3.6 oz) 022 10:50 AM EST Height 170.2 cm (5' 7 ) 04/03/2021 10:5 0 AM EST Body Mass Index 39.19 04/03/2021 10:50 AM EST Plan of Treatment Health Maintenance Due Date Last Done Comments Hepatitis B Vaccines (1 of 3 - 3-dose series) 1990 Hepatitis C Screening 1990 Cervical Cancer Screening (Pap Smear) 2013 BMI Counseling 04/03/2022 04/03/2021 Depression Screening 04/03/2022 04/03/2021 Preventative Health Evaluation 04/03/2022 04/03/2021 COVID-19 Vaccine ( season) 2024 03/14/2021, 06/01/2020, 05/11/2020 Influenza Vaccine (#1) 2024 DTap / Tdap / Td Discontinued Pneumococcal Vaccine Aged Out No long er eligible based on patient's age to complete this topic RSV Ped < 20 months Aged Out No longe r eligible based on patient's age to complete this topic Care Teams Band Instrument Repairer Relationship Specialty Start Date End Date Carlita Obrien, MANAGER STATE PCP - General Pediatrics 02/20/21
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
[2024-12-07 23:39] VITALS: BP 143/93; PULSE 70; RESP 16; TEMP 36.8; O2SAT 100
[2024-12-07 23:40] VITALS: BP 143/93; PULSE 70; RESP 16; TEMP 36.8; O2SAT 100
== END 2024-12-07 23:40 | disposition home or self-care (01) ==
PROVIDERS: Emergency Provider Student in an Organized Health Care Education/Training Program
DX: S16.1XXA Strain of muscle, fascia and tendon at neck level, initial encounter (principal); Q79.60 Ehlers-Danlos syndrome, unspecified; J45.909 Unspecified asthma, uncomplicated; Y04.8XXA Assault by other bodily force, initial encounter; Y93.89 Activity, other specified; Y92.89 Other specified places as the place of occurrence of the external cause; Y99.8 Other external cause status; Z79.899 Other long term (current) drug therapy
CPT/HCPCS: 70450; 72125; 99284

== ENCOUNTER → 2024-12-07 21:12 | Outpatient (BNV) | payer OTHER, SELFPAY | PROVIDERS: Emergency Provider Student in an Organized Health Care Education/Training Program; Visit Provider Student in an Organized Health Care Education/Training Program | DX: M54.2 Cervicalgia (principal); S09.90XA Unspecified injury of head, initial encounter; W03.XXXA Other fall on same level due to collision with another person, initial encounter | CPT/HCPCS: 70450; 72125 ==